=== PATIENT | male | born 1980 | race American Indian/Alaskan Native ===

== ENCOUNTER 2017-08-17 00:39 | Emergency (ER) | payer OTHER ==
[2017-08-17 01:04] VITALS: BP 112/68
--- NOTE | 2017-08-17 01:30 | XRay Report ---
FINAL REPORT PROCEDURE: XR HIP 2-3V RT TECHNIQUE: RIGHT hip radiographs, AP and lateral views. HISTORY: Rt hip pain and swelling COMPARISON: No prior studies are available for comparison. FINDINGS: Fracture (s) and/or Dislocation(s): None . Joint space(s): Normal . Soft tissues: Normal . Bone mineralization: Normal . Foreign bodies: None . IMPRESSION: No acute fracture or dislocation.
[2017-08-17] MEDS ORDERED: DECADRON IM ONE (03:40)
[2017-08-17] MEDS ORDERED: TORADOL IM ONE (03:40)
--- NOTE | 2017-08-17 03:45 | Emergency Department Report ---
ED Extremity Problem HPI - General Chief complaint: Extremity Injury, Lower Stated complaint: RT HIP PAIN Time Seen by Provider: 08/17/17 03:40 Source: patient Mode of arrival: Ambulatory Limitations: No Limitations - History of Present Illness Initial comments: 36-year-old -Indian male comes in for complaint of right hip pain and lower back pain 3 days. Patient reports that he has pain in his lower back that goes down his butt and crosses over to his front thigh down to his distal thigh. Patient denies any recent trauma. He reports that the pain is sharp in nature and radiates down his leg been going on for 3 days. He took 800 mg of ibuprofen every 4 hours without much Aleve. He does have a history of seizures last seizures was a couple years ago he currently takes no medication he has no primary care provider has no known drug allergies. MD Complaint: extremity pain -: days(s) (3) Location: right, lower extremity History of Same: Yes Radiation: distal Severity scale (0 -10): 8 Quality: sharp Consistency: intermittent Improves with: movement - Related Data Previous Rx's Medication Instructions Recorded Last Taken Type levETIRAcetam [Keppra] 500 mg PO BID #60 tablet 09/05/14 Unknown Rx Naproxen [Naprosyn] 500 mg PO BID #20 tablet 08/17/17 Unknown Rx predniSONE [Deltasone] 20 mg PO QDAY #5 tab 08/17/17 Unknown Rx Allergies Allergy/AdvReac Type Severity Reaction Status Date / Time No Known Allergies Allergy Verified 01/03/14 02:02 ED Review of Systems ROS: Stated complaint: RT HIP PAIN Other details as noted in HPI Constitutional: denies: chills, fever Eyes: denies: eye pain, eye discharge, vision change ENT: denies: ear pain, throat pain Respiratory: denies: cough, shortness of breath, wheezing Cardiovascular: denies: chest pain, palpitations Endocrine: no symptoms reported Gastrointestinal: denies: abdominal pain, nausea, diarrhea Genitourinary: denies: urgency, dysuria Musculoskeletal: arthralgia (right hip), myalgia (rt thigh) Skin: denies: rash, lesions Neurological: denies: headache, weakness, paresthesias Psychiatric: denies: anxiety, depression Hematological/Lymphatic: denies: easy bleeding, easy bruising ED Past Medical Hx - Past Medical History Previous Medical History?: Yes Hx Seizures: Yes - Surgical History Past Surgical History?: No - Social History Smoking Status: Current Every Day Smoker Substance Use Type: Alcohol, Marijuana - Medications Home Medications: Home Medications Medication Instructions Recorded Confirmed Last Taken Type levETIRAcetam [Keppra] 500 mg PO BID #60 tablet 09/05/14 Unknown Rx Naproxen [Naprosyn] 500 mg PO BID #20 tablet 08/17/17 Unknown Rx predniSONE [Deltasone] 20 mg PO QDAY #5 tab 08/17/17 Unknown Rx ED Physical Exam - General Limitations: No Limitations General appearance: alert, in no apparent distress - Head Head exam: Present: atraumatic, normocephalic - Eye Eye exam: Present: normal appearance - ENT ENT exam: Present: mucous membranes moist - Expanded Lower Extremity Exam Right Hip exam: Present: normal inspection, full ROM (with pain) Upper Leg exam: Present: normal inspection, full ROM, tenderness Knee exam: Present: normal inspection, full ROM. Absent: tenderness Lower Leg exam: Present: normal inspection, full ROM Ankle exam: Present: normal inspection, full ROM Foot/Toe exam: Present: normal inspection, full ROM Neuro vascular tendon exam: Present: no vascular compromise - Expanded Back Exam Expanded Back exam: Sciatic Notch Tenderness: Right, Positive Straight Leg Raise: Right - Neurological Exam Neurological exam: Present: alert, oriented X3 - Psychiatric Psychiatric exam: Present: normal affect, normal mood - Skin Skin exam: Present: warm, dry, intact, normal color. Absent: rash ED Course Vital Signs 08/17/17 00:58 Temperature 98 F Pulse Rate 76 Respiratory 18 Rate Blood Pressure 112/68 O2 Sat by Pulse 98 Oximetry ED Medical Decision Making - Radiology Data Radiology results: report reviewed Right hip 2 view impression: No acute fractures or dislocation. - Medical Decision Making Patient has been evaluated but this provider in fast track. I discussed the patient is appears to be sciatica. Discussed with him that treatment issues E nonsteroidal anti-inflammatories and at times we will give steroids. Discussed the patient that he needs to do stretches. Discussed the patient I will discharge him on naproxen. He should follow up with her primary care provider if symptoms persist or gets worse. Critical care attestation.: If time is entered above; I have spent that time in minutes in the direct care of this critically ill patient, excluding procedure time. ED Disposition Clinical Impression: Sciatica, right side Disposition: [id number] TO HOME OR SELFCARE Is pt being admited?: No Does the pt Need Aspirin: No Condition: Stable Instructions: Sciatica (ED), Lumbar Radiculopathy (ED) Additional Instructions: Please take medication as prescribed. Follow up with a primary care provider for continuing management. Prescriptions: Naproxen [Naprosyn] 500 mg PO BID #20 tablet predniSONE [Deltasone] 20 mg PO QDAY #5 tab Referrals: ELVIN EVANGELISTA MD [Primary Care Provider] - 3-5 Days Forms: Work/School Release Form(ED), Accompanied Note
== END 2017-08-17 04:45 | disposition home or self-care (01) ==
LOC: ED 00:39
DX: M54.31 Sciatica, right side (principal); F17.200 Nicotine dependence, unspecified, uncomplicated
CPT/HCPCS: 73502; 96372; 99283; J1100; J1885